=== PATIENT | male | born 1985 | race Caucasian/White ===

== ENCOUNTER 2025-04-18 08:09 | Inpatient (IN) | payer OTHER ==
[~2025-04-18] VITALS: Ht 170.2 cm; Wt 83.0 kg
[2025-04-18 09:08] LABS: PLATELET COUNT (AUTO) 243 K/uL (150-450); RED BLOOD CELL COUNT(AUTO) 5.44 MIL/uL (4.50-5.90); RED CELL DISTRIBUTION WIDTH 13.7 % (11.5-14.5); WHITE BLOOD COUNT (AUTO) 7.4 K/uL (4.5-11.0)
[2025-04-18 09:24] LABS: CALCIUM, TOTAL 9.2 mg/dL (8.8-10.5); CREATININE 1.07 mg/dL (0.60-1.30); GLOMERULAR FILTR. RATE CALC > 60 mL/min (>60); GLUCOSE,RANDOM 88 mg/dL (70-110); SODIUM SERUM 139 mmol/L (136-145); UREA NITROGEN, BLOOD 15 mg/dL (7-18)
[2025-04-18 09:28] LABS: PH,URINE DRUG SCREEN 6.5 (5.0-8.0)
[2025-04-18 09:38] LABS: ALCOHOL, URINE DRUG SCREEN NEGATIVE (NEGATIVE); AMPHET/METH SCREEN,URINE POSITIVE (NEGATIVE); BARBITURATE SCREEN, URINE NEGATIVE (NEGATIVE); CANNABINOID SCREEN,URINE POSITIVE (NEGATIVE); COCAINE SCREEN,URINE NEGATIVE (NEGATIVE); METHADONE SCREEN, URINE NEGATIVE (NEGATIVE)
[2025-04-18] MEDS ORDERED: MAGNESIUM HYDROXIDE SUSPENSION 30 ML UDCUP PO PRN (13:00)
[2025-04-18] MEDS ORDERED: ZOLPIDEM TARTRATE 5 MG TABLET PO PRN (13:00)
[2025-04-18] MEDS ORDERED: ONDANSETRON HCL 4 MG/2 ML VIAL IVP PRN (13:00)
[2025-04-18] MEDS ORDERED: ACETAMINOPHEN 325 MG TABLET PO PRN (13:00)
[2025-04-18] MEDS: SODIUM CHLORIDE 0.9% 1,000 ML IV ONE (13:13)
[2025-04-18] MEDS: POTASSIUM CHLORIDE 20 MEQ ER TABLET PO ONE (13:13)
[2025-04-18 14:42] VITALS: BP 131/80; PULSE 72; RESP 19; TEMP 97.7; O2SAT 99
[2025-04-18 20:00] VITALS: BP 121/82; PULSE 72; RESP 18; TEMP 97.5; O2SAT 99
[2025-04-19 04:00] VITALS: BP 135/74; PULSE 64; RESP 18; TEMP 97.7; O2SAT 98
[2025-04-19 08:00] VITALS: BP 127/87; PULSE 71; RESP 20; TEMP 97.7; O2SAT 99
[2025-04-19] MEDS: FAMOTIDINE 20 MG TABLET PO SCH (08:57)
== END 2025-04-20 11:00 | DRG 641 ==
LOC: EMS 08:09 → EDH 12:55 → 4S 14:00
PROVIDERS: ADMIT Internal Medicine; ATTEND Internal Medicine
DX: E87.6 Hypokalemia (principal); F15.10 Other stimulant abuse, uncomplicated; F19.10 Other psychoactive substance abuse, uncomplicated; Z87.891 Personal history of nicotine dependence
CPT/HCPCS: 74176; 80048; 80307; 85025; 99285; G0378; J7030